=== PATIENT | female | born 1990 | race Two or more races ===

== ENCOUNTER → 2021-12-19 14:39 | Outpatient (BNVA) | payer OTHER, SELFPAY | PROVIDERS: PCP Internal Medicine; Visit Provider Nurse Practitioner Family ==

== ENCOUNTER → 2022-03-10 20:42 | Outpatient (REF) | payer OTHER, SELFPAY | LOC: HO.SL 20:42 | PROVIDERS: PCP Internal Medicine; Visit Provider Nurse Practitioner Family | DX: R06.83 Snoring (principal) | CPT/HCPCS: 95810 ==